=== PATIENT | male | born 1980 | race Hispanic/Latino ===

== ENCOUNTER 2020-02-08 14:07 | Emergency (ER) | payer BC ==
[~2020-02-08] VITALS: Ht 182.9 cm; Wt 128.6 kg
--- NOTE | 2020-02-08 14:39 | Emergency Department Note ---
History of Present Illnes History of Present Illness Chief Complaint: rgt hand pain s/p crush by drilling machine History of Present Illness This is a 39 year old male. was doing well prior to this. 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 Onset (how long ago): day(s) (3) Location: rgt hand Quality: sharp Radiation: Reports non-radiation Severity: moderate Onset quality: sudden Duration (how long): day(s) (3) Timing of current episode: constant Progression: partially resolved Chronicity: new Context: Reports trauma/injury; Denies recent illness, Denies recent surgery, Denies recent immobilization, Denies recent travel, Denies new medications, Denies hx of DVT/PE, Denies non- compliance w/ medications Relieving factors: rest Exacerbating factors: movement Associated symptoms: Reports denies other symptoms Treatments prior to arrival: none Past Medical/Family History Physician Review I have reviewed the patient's past medical and family history. Any updates have been documented here. Past Medical History Recent Fever: No Clinical Suspicion of Infectio: No New/Unexplained Change in Ment: No Past Medical History: None Past Surgical History: None Social History Smoking Cessation: Never Smoker Counseling Performed: No Any Illegal Drug Use: No TB Exposure/Symptoms: No Physically hurt or threatened: No Family History Family history of heart diseas: No Other Any Pre-Existing Lines (PICC,: No Is patient up to date on immun: No Review of Systems Review of Systems Constitutional: Reports no symptoms EENTM: Reports no symptoms Cardiovascular: Reports no symptoms Respiratory: Reports no symptoms Gastrointestinal: Reports no symptoms Genitourinary: Reports no symptoms Musculoskeletal: Reports as per HPI Integumentary: Reports no symptoms Neurological: Reports no symptoms Psychological: Reports no symptoms Endocrine: Reports no symptoms Hematological/Lymphatic: Reports no symptoms Review of other systems: All other systems negative Physical Exam Related Data Allergies: Coded Allergies: No Known Allergies (Unverified , 02/08/20) Vital signs reviewed: Yes Physical Exam CONSTITUTIONAL Constitutional: Present well-developed, Present well-nourished HENT HENT: Present normocephalic, Present atraumatic, Present oropharynx clear/moist, Present nose normal HENT L/R: Present left ext ear normal, Present right ext ear normal EYES Eyes: Reports PERRL, Reports conjunctivae normal NECK Neck: Present ROM normal, Present supple PULMONARY Pulmonary: Present effort normal, Present breath sounds normal CARDIOVASCULAR Cardiovascular: Present regular rhythm, Present heart sounds normal, Present capillary refill normal, Present normal rate GASTROINTESTINAL Abdominal: Present soft, Present nontender, Present bowel sounds normal GENITOURINARY Genitourinary: Present exam deferred SKIN Skin: Present warm, Present dry MUSCULOSKELETAL Musculoskeletal: Present ROM normal, Present tenderness (rgt hand), Present swelling NEUROLOGICAL Neurological: Present alert, Present oriented x 3, Present no gross motor or sensory deficits PSYCHOLOGICAL Psychological: Present mood/affect normal, Present judgement normal Results Imaging Imaging results reviewed: Yes Impressions [place] [address] Patient Name: JENNIFER MAHAN MR #: [id number] : 1980 Age/Sex: 39/M Req #: [id number] Adm Physician: Ordered by: RAN JOHNSON Report #: [id number] Location: [facility] Room/Bed: Procedure: [id number] HOPD/HAND 3 VIEW RT - HOPD Exam Date: 02/08/20 Exam Time: 1444 REPORT STATUS: Signed EXAMINATION: HAND 3 VIEW RT - HOPD INDICATION: Trauma COMPARISON: None FINDINGS: Mildly displaced oblique fracture of the shaft of the fourth metacarpal. Alignment remains near-anatomic. No additional fractures identified. Mild dorsal hand soft tissue swelling. IMPRESSION: Acute mildly displaced fourth metacarpal fracture. Signed by: Davon Carrizales MD on 02/08/2020 2:47 PM Dictated By: DAVON CARRIZALES MD 46 Transcribed By: TAY on 02/08/201446 COPY TO: RAN JOHNSON~ Procedures Orthopedic Splinting/Casting Injury: Injury #1 Side: right (hand) Upper exremity injury location: hand Upper extremity immobilizer: ulnar gutter Additional comments +nvi Assessment & Plan Medical Decision Making MDM see below Assessment & Plan Final Impression: (1) Closed right hand fracture Depart Disposition: HOME, SELF-half-way Meds Active Scripts Tramadol Hcl* (ULTRAM 50MG*) 50 Mg Tab, 50 MG PO Q6H PRN for MODERATE PAIN (4- 6), #30 TAB take after ibuprofen to control pain if need be Prov:RAN JOHNSON 02/08/20 Ibuprofen (MOTRIN) 800 Mg Tab, 800 MG PO Q6H PRN for MODERATE PAIN (4-6), #40 TAB Prov:RAN JOHNSON 02/08/20 Reported Medications Lisinopril (LISINOPRIL) 5 Mg Tablet, 5 MG PO DAILY, #30 TAB 02/08/20 Metformin Hcl (METFORMIN HCL ER) 1,000 Mg Tab.er.24, 1500 DAILY 02/08/20 RAN JOHNSON Feb 08, 2020 14:39
[2020-02-08] MEDS ORDERED: METFORMIN HCL1000 M1 (14:43)
[2020-02-08] MEDS ORDERED: LISINOPRIL5 MG PO (14:43)
--- NOTE | 2020-02-08 14:51 | Diagnostic Imaging Report ---
EXAMINATION: HAND 3 VIEW RT - HOPD INDICATION: Trauma COMPARISON: None FINDINGS: Mildly displaced oblique fracture of the shaft of the fourth metacarpal. Alignment remains near-anatomic. No additional fractures identified. Mild dorsal hand soft tissue swelling. IMPRESSION: Acute mildly displaced fourth metacarpal fracture. Signed by: Rivera Carrizales MD on 02/08/2020 2:47 PM
[2020-02-08] MEDS ORDERED: ULTRAM 50MG50 MG PO (15:08)
[2020-02-08] MEDS ORDERED: MOTRIN800 MG PO (15:08)
== END 2020-02-08 15:42 | disposition home or self-care (01) ==
LOC: FSED 15:28
DX: S62.324A Displaced fracture of shaft of fourth metacarpal bone, right hand, initial encounter for closed fracture (principal); W23.1XXA Caught, crushed, jammed, or pinched between stationary objects, initial encounter; Y99.0 Civilian activity done for income or pay
CPT/HCPCS: 99284